=== PATIENT | female | born 1970 | race Caucasian/White ===

== ENCOUNTER 2021-08-07 16:36 | Emergency (ER) | payer OTHER, SELFPAY ==
[2021-08-07 16:46] VITALS: BP 119/53; PULSE 82; RESP 16; TEMP 36.6; O2SAT 98
--- NOTE | 2021-08-07 17:15 | ED.URI ---
HPI - URI/Sore Throat General Chief Complaint: Upper Respiratory Infection Stated Complaint: Cough,Congestion Time Seen by Provider: 08/07/21 17:05 Source: patient Mode of arrival: ambulatory Limitations: no limitations History of Present Illness HPI Narrative: Kodi is a 79-year-old female with a history of seizures, hypothyroidism, who comes to [facility] with coughing x9 days and general congestion. 3-year-old granddaughter was diagnosed with RSV a few weeks ago and then her daughter got ill and now that she has been having this cough and congestion for 9 days and is taken most commendations [id number] medications still cannot sleep or shake the coughing. Today she states it almost got to be a point where she could not stop coughing. She has been vaccinated and had COVID booster Related Data Home Medications Medication Instructions Recorded Confirmed estradiol See Rx Instructions .ROUTE .COMPLEX 08/07/21 08/07/21 fluoxetine 20 mg PO DAILY 08/07/21 08/07/21 lamotrigine 200 mg PO DAILY 08/07/21 08/07/21 omeprazole 40 mg PO DAILY 08/07/21 08/07/21 Allergies Allergy/AdvReac Type Severity Reaction Status Date / Time No Known Allergies Allergy Mild Verified 08/07/21 16:42 Review of Systems Review of Systems: CONSTITUTIONAL: Denies fever, chills, sweats. EYES: Denies visual changes, redness, discharge. ENT: Denies rhinorrhorrea, has Congestion, sore throat, otalgia. CARDIOVASCULAR: Denies chest pain, palpitations, edema. RESPIRATORY: Denies dyspnea, wheezing, has cough GASTROINTESTINAL: Denies abdominal pain, nausea, vomiting, diarrhea. GENITOURINARY: Denies dysuria, hematuria, abnormal discharge SKIN: Denies rash or itching. NEUROLOGIC: Denies numbness, or focal weakness. PSYCHIATRIC: Denies anxiety or depression. [facility] Past Medical History Medical History (Updated 08/07/21 @ 17:23 by Natasha Ramirez CNP) Hypothyroid Seizures Surgical History Surgical History (Updated 08/07/21 @ 17:19 by Natasha Ramirez CNP) History of Social History Social History (Updated 08/07/21 @ 17:19 by Natasha Ramirez CNP) Smoking status: Never smoker Alcohol intake: current Comments At time of signature, I agree with nursing past medical, surgical, social and family history. There is no relevant family history pertinent to the presenting complaint. Exam Narrative: GENERAL: This is a well-nourished, well-developed patient, in mild distress. HEAD: normocephalic, atraumatic. EYES: Sclera clear/white. Vision is grossly intact. EARS: External ears normal, auditory canals clear and without drainage, TMs normal without perforation. Hearing grossly intact. NOSE: External nose normal without nasal discharge, nares without redness, no rhinorrhea. THROAT: Mucous membranes moist, posterior pharynx erythema with clear drainage NECK: Neck supple, non-tender CARDIOVASCULAR: Regular rate and rhythm without murmurs, gallops, or rubs. RESPIRATORY: Clear to auscultation. Breath sounds equal bilaterally. No wheezes, rales, or rhonchi. GASTROINTESTINAL: Abdomen soft, SKIN: warm, intact with no suspicious lesions or rash, good texture and turgor. NEURO: awake, alert, and oriented to person, place and time. There were no obvious focal neurologic abnormalities. Steady gait EXTREMITIES: Normal range of motion. BACK: Nontender without deformity Course Course Emergency Course: Patient comes with cough and congestion x9 days Has had a negative rapid Covid test last week Started on prednisone, Tessalon Perles, codeine cough syrup Vital Signs Vital signs: Vital Signs Temperature 97.9 F 08/07/21 16:46 Pulse Rate 82 08/07/21 16:46 Respiratory Rate 16 08/07/21 16:46 Blood Pressure 119/53 L 08/07/21 16:46 Pulse Oximetry 98 08/07/21 16:46 Temperature 97.9 F 08/07/21 16:46 Pulse Rate 82 08/07/21 16:46 Respiratory Rate 16 08/07/21 16:46 Blood Pressure 119/53 L 08/07/21 16:46 Pul
== END 2021-08-07 17:28 | disposition home or self-care (01) ==
PROVIDERS: Emergency Provider Nurse Practitioner; PCP Physician Assistant
DX: J06.9 Acute upper respiratory infection, unspecified (principal); R05.9 Cough, unspecified; E03.9 Hypothyroidism, unspecified
CPT/HCPCS: 99213; G0463

== ENCOUNTER → 2022-06-08 10:22 | Outpatient (CLI) | payer OTHER, SELFPAY ==
--- NOTE | ~2022-06-08 | XR_ITS ---
EXAMINATION: XR foot LT min 3V DATE: 06/08/2022 10:39 INDICATION: Left heel pain TECHNIQUE: Dorsoplantar, lateral, and 2 oblique views of the left foot were obtained. COMPARISON: None. FINDINGS: Bone alignment is normal. There is no fracture. There is mild osteoarthritis at the first m etatarsophalangeal joint and in multiple interphalangeal joints. The soft tissues are unremarkable. P osterior and plantar calcaneal enthesophytes are noted. There is mild osteoarthritis of the ankle in the mid and proximal foot. IMPRESSION: 1. 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 Reviewed, dictated and finalized at location F.
== END ==
PROVIDERS: PCP Physician Assistant; Visit Provider Podiatrist Foot & Ankle Surgery
DX: M19.072 Primary osteoarthritis, left ankle and foot (principal)
CPT/HCPCS: 73630

== ENCOUNTER 2022-07-03 12:00 | Day surgery (SDC) | payer OTHER, SELFPAY ==
[2022-03-29 10:58] VITALS: BMI 31.6
[2022-06-18 14:22] VITALS: BMI 28.2
[2022-07-03 12:10] VITALS: BP 128/83; PULSE 80; RESP 20; TEMP 37.2; O2SAT 98
--- NOTE | 2022-07-03 12:24 | WPDANESEPPF ---
Anes - Initial Pre Proc Eval Procedure: Operation Date: 07/03/22 13:30 Proposed Procedures p Screening Colonoscopy - Teo Smith MD Date/Time: 07/03/22 12:24 Surgeon: Teo Smith MD Pre Op Diagnosis: Neoplasm Screening Patient Data Age: 52 Gender: F Height: 1.65 m Weight: 84 kg Last Vital Signs Temp 37.2 C 07/03/22 12:10 Pulse 80 07/03/22 12:10 Resp 20 07/03/22 12:10 BP 128/83 07/03/22 12:10 Pulse Ox 98 07/03/22 12:10 O2 Del Method Room Air 07/03/22 12:10 Allergies Allergy/AdvReac Type Severity Reaction Status Date / Time No Known Allergies Allergy Mild Verified 07/03/22 12:14 Home Medications Medication Instructions Recorded Confirmed Type estradiol 0.0375 mg/24 hr See Rx Instructions .Route .COMPLEX 08/07/21 07/03/22 History semiweekly transdermal patch fluoxetine 20 mg capsule 20 mg PO DAILY 08/07/21 07/03/22 History lamotrigine 200 mg tablet 200 mg PO DAILY 08/07/21 07/03/22 History (Lamictal) omeprazole 40 mg capsule,delayed 40 mg PO DAILY 08/07/21 07/03/22 History release sodium,potassium,mag sulfates 17.5 See Rx Instructions PO .COMPLEX 03/29/22 Rx gram-3.13 gram-1.6 gram oral soln #354 mL (Suprep Bowel Prep Kit) Patient hx anesthesia problems: post op nausea/vomiting Family hx anesthesia problems: none Results Review: All pre-operative results and documents have been reviewed as part of the pre-operative evaluation. [facility] Past Medical History Medical History Anxiety Depression Hypothyroid PAYAM (obstructive sleep apnea) Seizures Surgical History Surgical History History of Social History Social History Smoking status: Never smoker Alcohol intake: unknown Substance use: never Substance use type: does not use Living arrangements: with family Spiritual care concerns: No Anes - Eval Final PreProcedure Day of Procedure 07/03/22 12:24 Patient weight: obese Heart: regular rate and rhythm Lungs: clear to auscultation Airway: Mallampati scale class II Neurological: alert and oriented Last oral intake: >/= 8 hours ASA classification: III Emergent: no Anesthetic plan: proceed Anesthesia type and monitoring: general GIVS and standard monitoring Results Review: All pre-operative results and documents have been reviewed as part of the pre-operative evaluation. Informed Consent: The patient's anesthetic plan and its attendant risks and benefits were discussed with the patient/family/POA. Questions were solicited and answers provided to the satisfaction of the patient/family/POA.
--- NOTE | 2022-07-03 12:30 | P.HP_ITS ---
History of Present Illness History of Present Illness Consent: Risks, benefits, and alternatives have been discussed and questions answered. Patient agrees to proceed with procedure. Chief complaint: Neoplasm Screening Narrative: Tiana Payne is a 52 year old female Presents for screening colonoscopy. Patient's current weight appetite and bowel movements are normal. She denies abdominal pain. She has had no bleeding. Family history is noncontributory. Review of Systems Review of Systems: Review of systems noncontributory. [facility] Past Medical History Medical History (Updated 07/03/22 @ 12:32 by Teo Smith MD) Anxiety Depression Hypothyroid PAYAM (obstructive sleep apnea) Seizures Surgical History Surgical History (Updated 08/07/21 @ 17:19 by Natasha Ramirez, [employer]) History of Social History Social History (Updated 08/07/21 @ 17:19 by Natasha Ramirez, [employer]) Smoking status: Never smoker Alcohol intake: unknown Substance use: never Substance use type: does not use Living arrangements: with family Spiritual care concerns: No Meds Home Medications and Allergies Home Medications Medication Instructions Recorded Confirmed Type estradiol 0.0375 mg/24 hr See Rx Instructions .Route .COMPLEX 08/07/21 07/03/22 History semiweekly transdermal patch fluoxetine 20 mg capsule 20 mg PO DAILY 08/07/21 07/03/22 History lamotrigine 200 mg tablet 200 mg PO DAILY 08/07/21 07/03/22 History (Lamictal) omeprazole 40 mg capsule,delayed 40 mg PO DAILY 08/07/21 07/03/22 History release sodium,potassium,mag sulfates 17.5 See Rx Instructions PO .COMPLEX 03/29/22 Rx gram-3.13 gram-1.6 gram oral soln #354 mL (Suprep Bowel Prep Kit) Allergies Allergy/AdvReac Type Severity Reaction Status Date / Time No Known Allergies Allergy Mild Verified 07/03/22 12:14 Vital Signs Vital Signs - 24 hr 07/03/22 12:10 Temperature 98.9 F Pulse Rate 80 Respiratory Rate 20 Blood Pressure 128/83 Pulse Oximetry 98 Oxygen Delivery Room Air Exam Narrative: Physical exam reveals patient to be alert. Vital signs stable. HEENT exam is unremarkable. Patient is anicteric. Lungs are clear to auscultation and percussion. Heart is without murmur or extra sounds. Abdomen bowel sounds are present soft nontender with no organomegaly. Digital external rectal exam is normal. Assessment and Plan Assessment and plan (1) Encounter for screening colonoscopy: Code(s): Z12.11 - Encounter for screening for malignant neoplasm of colon Status: Acute Assessment and Plan: Patient presents for screening colonoscopy. Appears to be at average risk for colon polyps. Further recommendations may be given after endoscopy.
[2022-07-03] MEDS: LACTATED RINGERS 1,000 ML 150 ML IV CONT (12:32)
[2022-07-03 13:20] VITALS: BP 115/69; PULSE 76; RESP 16; O2SAT 99
[2022-07-03 13:30] VITALS: BP 105/74; PULSE 72; RESP 16; O2SAT 100
[2022-07-03 13:40] VITALS: BP 106/61; PULSE 78; RESP 16
--- NOTE | 2022-07-03 13:40 | WPDANESPN ---
Anes - Prog Note Post-Op Date/Time: 07/03/22 13:40 Cardiovascular status: normal Respiratory status: normal Airway patency: baseline Mental status: baseline Post-Op hydration status: normal Vital Signs: Last Vital Signs Temp 37.2 C 07/03/22 12:10 Pulse 76 07/03/22 13:20 Resp 16 07/03/22 13:20 BP 115/69 07/03/22 13:20 Pulse Ox 99 07/03/22 13:20 O2 Del Method Room Air 07/03/22 13:20 Pain Score (VAS): 0 I/O: Intake & Output 07/02/22 07/03/22 07/03/22 23:59 07:59 15:59 Intake Total 300 Balance 300 Patient Feedback: Patient satisfied with anesthetic care.
--- NOTE | 2022-07-03 13:59 | SUR.PHASEII ---
1355; PT AWAKE AND ALERT. DENIES PAIN. READY FOR DISCHARGE.
== END 2022-07-03 14:02 | disposition home or self-care (01) ==
PROVIDERS: PCP Physician Assistant; Visit Provider Internal Medicine Gastroenterology
PROC: 0DJD8ZZ Inspection of Lower Intestinal Tract, Via Natural or Artificial Opening Endoscopic (ICD-10-PCS; CPT 45378; principal; 2022-07-03 13:30)
DX: Z12.11 Encounter for screening for malignant neoplasm of colon (principal)
CPT/HCPCS: 45378

== ENCOUNTER 2022-09-26 18:06 | Emergency (ER) | payer OTHER, SELFPAY ==
[2022-09-26 18:18] VITALS: BP 119/57; PULSE 81; RESP 20; TEMP 36.8; O2SAT 100
--- NOTE | 2022-09-26 18:49 | ED.EAR ---
HPI - Ear Problem General Chief complaint: Ear Stated complaint: Lt Ear Irritation Time Seen by Provider: 09/26/22 18:41 Source: patient Mode of arrival: ambulatory Limitations: no limitations History of Present Illness HPI Narrative: Patient presents today complaining of 5 day history of left ear pain. This was exacerbated by her flying last weekend and states her ear did not equalize during her flight. She also reports associated nasal congestion. Currently rates her pain 7/10, which is intermittent. She has been trying Sudafed, NyQuil, and Tylenol with mild relief. Related Data Home Medications Medication Instructions Recorded Confirmed estradiol 0.0375 mg/24 hr See Rx Instructions .Route .COMPLEX 08/07/21 09/26/22 semiweekly transdermal patch fluoxetine 20 mg capsule 20 mg PO DAILY 08/07/21 09/26/22 lamotrigine 200 mg tablet 200 mg PO DAILY 08/07/21 09/26/22 (Lamictal) omeprazole 40 mg capsule,delayed 40 mg PO DAILY 08/07/21 09/26/22 release levothyroxine 50 mcg tablet 50 mcg PO DAILY 09/26/22 09/26/22 (Synthroid) progesterone micronized 100 mg 100 mg PO DAILY 09/26/22 09/26/22 capsule Allergies Allergy/AdvReac Type Severity Reaction Status Date / Time No Known Allergies Allergy Mild Verified 09/26/22 18:09 Review of Systems Review of Systems: CONSTITUTIONAL: Denies body aches, fever, chills, or sweats. EYES: Denies visual changes, redness, or discharge. ENT: Denies rhinorrhea, sore throat+ congestion, left ear pain CARDIOVASCULAR: Denies chest pain, palpitations, or edema. RESPIRATORY: Denies cough or dyspnea. GASTROINTESTINAL: Denies abdominal pain, nausea, vomiting, or diarrhea. GENITOURINARY: Denies dysuria or hematuria. SKIN: Denies rash, itching, or wounds. MUSCULOSKELETAL: Denies back pain, joint pain, or myalgia. NEUROLOGIC: Denies headache, numbness, tingling, or weakness. PSYCH: Denies depression or anxiety. [facility] Past Medical History Medical History Anxiety Depression Hypothyroid PAYAM (obstructive sleep apnea) Seizures Surgical History Surgical History History of Social History Social History Smoking status: Never smoker Alcohol intake: unknown Substance use: never Substance use type: does not use Living arrangements: with family Spiritual care concerns: No Comments At time of signature, I have reviewed and agree with nursing past medical, surgical, social and family history unless otherwise noted. Please see nursing chart for further information. There is no relevant family history pertinent to the presenting complaint Exam Narrative: GENERAL: Well-appearing, well-nourished, and in no acute distress. HEAD: Normocephalic, atraumatic. EYES: EOMI. No redness or drainage. Conjunctivae normal. ENT: Mucous membranes pink and moist. Nares congested. No rhinorrhea. Right TM normal. Left TM bulging with clear fluid. NECK: Normal AROM. CHEST: No respiratory distress. EXTREMITIES: Normal range of motion. No edema. SKIN: Warm, dry, no rash. Capillary refill normal. Normal skin turgor. NEURO: No focal deficits. Alert and oriented x3. Gait steady. PSYCH: Normal affect. No signs of depression or anxiety. Course Course Level of Care: Express Care Visit Vital Signs Vital signs: Vital Signs Temperature 98.3 F 09/26/22 18:18 Pulse Rate 81 09/26/22 18:18 Respiratory Rate 20 09/26/22 18:18 Blood Pressure 119/57 L 09/26/22 18:18 Pulse Oximetry 100 09/26/22 18:18 Oxygen Delivery Room Air 09/26/22 18:18 Temperature 98.3 F 09/26/22 18:18 Pulse Rate 81 09/26/22 18:18 Respiratory Rate 20 09/26/22 18:18 Blood Pressure 119/57 L 09/26/22 18:18 Pulse Oximetry 100 09/26/22 18:18 Oxygen Delivery Room Air 09/26/22 18:18 Revie
== END 2022-09-26 18:55 | disposition home or self-care (01) ==
PROVIDERS: Emergency Provider Nurse Practitioner; PCP Physician Assistant
DX: H65.02 Acute serous otitis media, left ear (principal); E03.9 Hypothyroidism, unspecified; G40.909 Epilepsy, unspecified, not intractable, without status epilepticus; F41.9 Anxiety disorder, unspecified; F32.A Depression, unspecified; G47.33 Obstructive sleep apnea (adult) (pediatric); Z91.198 Patient's noncompliance with other medical treatment and regimen for other reason
CPT/HCPCS: 99213; G0463